=== PATIENT | male | born 1995 | race Caucasian/White ===

== ENCOUNTER 2017-01-10 21:16 | Emergency (ER) | payer BC ==
[2017-01-10] MEDS ORDERED: NS 1,000 ML IV ONE (21:22)
[2017-01-10] MEDS ORDERED: IOPAMIDOL (ISOVUE-300) 100 ML BTL IV ONE (21:26)
[2017-01-10 21:30] VITALS: RESP 16
[2017-01-10 22:17] LABS: ABSOLUTE NRBC COUNT 0.02 10^3/uL (0-0.01); ADD DIFF? YES; ADD MORPH? NO; ATYPICAL LYMPHOCYTE FLAG 10 (0-99); FRAGMENT RBC FLAG 0 (0-99); HEMOGLOBIN 16.1 g/dL (13.7-17.5); LEFT SHIFT FLG 10 (0-99); LIPEMIA HEMOLYSIS FLAG 80 (0-99); MEAN CELL HEMOGLOBIN 30.8 pg (27.9-34.1); MEAN CELL HEMOGLOBIN CONCENTR. 32.2 g/dL (32.4-36.7); MEAN CELL VOLUME 95.6 fL (81.5-99.8); MEAN PLATELET VOLUME 12.6 fL (8.7-11.7); NRBC-AUTO% 0.1 % (0.0-0.2); PLATELET CLUMPS FLAG 0 (0-99); PLATELET COUNT 364 10^3/uL (150-400); RED BLOOD CELL COUNT 5.23 10^6/uL (4.40-6.38); RED CELL DISTRIBUTION WIDTH 12.1 % (11.5-15.2)
[2017-01-10 22:18] LABS: ADD SCAN? NO
[2017-01-10 22:22] LABS: CALCIUM 10.4 mg/dL (8.5-10.4); CARBON DIOXIDE 10 mEq/l (22-31); CREATININE 1.2 mg/dL (0.7-1.3); GLOMERULAR FILTRATION RATE > 60; GLUCOSE 130 mg/dL (70-100); POTASSIUM 3.8 mEq/L (3.5-5.2); SODIUM 146 mEq/L (134-144)
[2017-01-10 22:37] LABS: ANION GAP 34 mEq/L (8-16); CHLORIDE 102 mEq/L (97-110); TROPONIN I < 0.012 ng/mL (0-0.034)
[2017-01-10 22:50] VITALS: O2SAT 96
[2017-01-10 22:59] LABS: PLATELET ESTIMATE ADEQUATE (ADEQ)
--- NOTE | 2017-01-11 00:08 | EDPHY ---
H & P Stated Complaint: witnessed seizure HPI/ROS: Chief complaint: Seizure History of present illness: This is a 21-year-old male brought to the emergency department by EMS for a seizure. Patient had a witnessed tonic- clonic seizure. EMS does report patient was postictal. On my evaluation patient is alert. States he does not remember having the seizure. He states he feels well at this time. He denies any potential precipitating factors. Denies other associated signs or symptoms including no history of trauma, no fevers or cold symptoms, no paresthesias, no weakness or paralysis and no bowel or bladder dysfunction. Review of systems: A 10 point review of systems was obtained and other than described above is negative - Personal History Current Tetanus/Diphtheria Vaccine: Yes Current Tetanus Diphtheria and Acellular Pertussis (TDAP): Yes - Medical/Surgical History Hx Asthma: No Hx Chronic Respiratory Disease: No Hx Diabetes: No Hx Cardiac Disease: No Hx Renal Disease: No Hx Cirrhosis: No Hx Alcoholism: No Hx HIV/AIDS: No Hx Splenectomy or Spleen Trauma: No Other PMH: appe, ADHD - Social History Smoking Status: Never smoked - Physical Exam Exam: General Appearance: Alert, nontoxic. Eyes: Pupils equal and round no pallor or injection. ENT, Mouth: Mucous membranes moist. Respiratory: There are no retractions, lungs are clear to auscultation. Cardiovascular: Regular rate and rhythm. Gastrointestinal: Abdomen is soft and nontender, no masses, bowel sounds normal. Neurological: Alert and oriented x4. Cranial nerves 2-12 grossly intact. Strength and sensation intact and symmetrical. Patient ambulating without difficulty. Skin: Warm and dry, no rashes. Musculoskeletal: Neck is supple nontender. Extremities are symmetrical, full range of motion. Psychiatric: Patient is oriented X 3, there is no agitation. Constitutional: Initial Vital Signs Temperature (C) 36.8 C 01/10/17 21:26 Heart Rate 106 H 01/10/17 21:26 Respiratory Rate 16 01/10/17 21:26 Blood Pressure 109/62 01/10/17 21:26 O2 Sat (%) 94 01/10/17 21:26 O2 Delivery Mode Room Air Allergies/Adverse Reactions: Penicillins Allergy (Verified 01/10/17 21:31) Home Medications: Medication Instructions Recorded Adderall 10 mg Tablet 01/10/17 Medical Decision Making - Diagnostics Imaging: CT scan of the head with and without contrast negative for acute findings ED Course/Re-evaluation: Patient is discussed with my secondary supervising physician Dr. Kike Murillo. Patient brought to the emergency department for a witnessed tonic-clonic seizure. On presentation patient is nontoxic. He is alert and oriented. CT scan is unremarkable. Blood side with significant leukocytosis and decreased bicarb most consistent with a recent seizure. EKG unremarkable. Patient has been unable to give a urine sample and does not want to wait to give one for toxicology screen. Patient is from out of town and returning to [place] this weekend. He is discharged home. Home care is discussed. I have had a lengthy discussion with him on seizure precautions. He is asked to follow up with a neurologist when he returns home. Strict return precautions are given. Patient voiced understanding and agreement with plan. Differential Diagnosis: Seizure secondary to epilepsy, anemia, electrolyte disturbances, toxic substances, cardiac dysrhythmias, intracranial mass or bleeding - Data Points Laboratory Results: Laboratory Results 01/10/17 21:22 01/10/17 21:22 Medications Given: Discontinued Medications Sodium Chloride (Ns) 1,000 mls @ 0 mls/hr IV ONCE ONE PRN Reason: Wide Open Stop: 01/10/17 21:23 Last Admin: 01/10/17 21:58 Dose: 1,000 mls Departure - Departure Disposition: Home, Routine, Self-Care Clinical Impression: Seizure Condition: Good Instructions: New-Onset Seizure in Adults (ED) Additional Instructions: Follow-up with a neurologist next week when you return home to [place] If you stay in [place] you can follow up with our neurologist You must maintain seizure precautions as discussed until cleared by Neurology. Do not drive, operate machinery, swim or bathe or perform other activities where if you had a seizure you could harm or kill yourself or another person If symptoms worsen or new symptoms develop return to the emergency room for recheck Referrals: WAYNE CASTELLANOS [Other] - As per Instructions Xander Greenberg MD [Medical Doctor] - As per Instructions
[2017-01-11 00:38] VITALS: BP 116/73; PULSE 71; TEMP 97.2
--- NOTE | 2017-01-11 11:19 | CPEKG ---
Heart Rate: 84 RR Interval: 714 P-R Interval: 148 QRSD Interval: 92 QT Interval: 412 QTC Interval: 488 P [place]: 72 QRS [place]: 49 T Wave [place]: 67 EKG Severity - BORDERLINE ECG - EKG Impression: SINUS RHYTHM EKG Impression: ST ELEV, PROBABLE NORMAL EARLY REPOL PATTERN EKG Impression: BORDERLINE PROLONGED QT INTERVAL Electronically Signed By: Tara Guillen 11-Jan-2017 22:13:29
== END 2017-01-11 00:29 | disposition home or self-care (01) ==
DX: R56.9 Unspecified convulsions (principal)
CPT/HCPCS: Q9967